=== PATIENT | male | born 1970 | race Caucasian/White ===

== ENCOUNTER 2017-03-17 18:16 | Emergency (ER) | payer SELFPAY ==
[~2017-03-17] VITALS: Ht 172.7 cm; Wt 94.3 kg
[~2017-03-17 18:16] MED LIST: ANAPROX DS550 MG PO; DARVOCET N 1001 TAB PO; FLEXERIL10 MG PO; SKELAXIN800 MG PO; VICODIN 5/500 505 MG PO
[2017-03-17] MEDS ORDERED: PLAVIX75 M1 PO (18:29)
[2017-03-17 18:43] LABS: BILIRUBIN NEGATIVE (NEGATIVE); BLOOD NEGATIVE (NEGATIVE); CLARITY SL CLOUDY (CLEAR); COLOR YELLOW (YELLOW); GLUCOSE NEGATIVE (NEGATIVE); KETONE NEGATIVE (NEGATIVE); LEUKO ESTERASE NEGATIVE (NEGATIVE); NITRITE NEGATIVE (NEGATIVE); PH 6.5 (5.0-9.0); PROTEIN NEGATIVE (NEGATIVE); UROBILINOGEN 0.2 E.U./dl (0.2-1.0)
[2017-03-17 18:54] LABS: BACTERIA TRACE; EPITHELIAL CELLS 0-2; RBC 0-2 rbc/hpf (0-2); URINE REFLEX COMMENT NO (NO); WBC 0-2 wbc/hpf (0-5)
[2017-03-17] MEDS ORDERED: FLOMAX0.4 MG PO (18:56)
== END 2017-03-17 19:01 | disposition home or self-care (01) ==
LOC: ED 18:16
PROVIDERS: Nurse Practitioner Family
DX: R35.0 Frequency of micturition (principal); R03.0 Elevated blood-pressure reading, without diagnosis of hypertension; R39.11 Hesitancy of micturition; R30.0 Dysuria; F17.200 Nicotine dependence, unspecified, uncomplicated; Z79.899 Other long term (current) drug therapy

== ENCOUNTER 2017-03-25 13:42 | Emergency (ER) | payer SELFPAY ==
[~2017-03-25] VITALS: Wt 94.3 kg
[~2017-03-25 13:42] MED LIST changes: +FLOMAX0.4 MG PO; +PLAVIX75 M1 PO
[2017-03-25] MEDS ORDERED: NAPROXEN550 MG PO (13:49)
[2017-03-25] MEDS ORDERED: LEVOTHYROXINE0.05 MG PO (13:49)
[2017-03-25 14:10] LABS: BASO % 0.3 % (0.0-1.0); EOS # 0.2 10*3/uL (0.0-0.4); EOS % 2.6 % (1.0-4.0); HEMOGLOBIN 14.9 g/dl (14.0-18.0); LYMPH # 2.5 10*3/uL (1.3-4.4); LYMPH % 33.9 % (27.0-41.0); MEAN CELL VOLUME 89.1 fl (80.0-94.0); MEAN CORPUSCULAR HGB 29.5 pg (27.0-31.0); MEAN CORPUSCULAR HGB CONC 33.1 g/dl (33.0-37.0); MONO # 0.7 10*3/uL (0.1-1.0); NEUT # 3.9 10*3/uL (2.3-7.9); NEUT % 52.8 % (47.0-73.0); PLATELET COUNT AUTOMATED 227 10*3/uL (130-400); RED BLOOD COUNT 5.05 10*6/uL (4.50-5.90); RED CELL DISTRI WIDTH 13.5 % (0-14.5); WHITE BLOOD COUNT 7.3 10*3/uL (4.8-10.8)
[2017-03-25 14:27] LABS: ALBUMIN 4.1 gm/dl (3.1-4.5); ALKALINE PHOSPHATASE 77 U/L (45-117); BILIRUBIN, TOTAL 0.4 mg/dl (0.2-1.0); BUN 15 mg/dl (7-24); CARBON DIOXIDE 28 mmol/L (21-32); CHLORIDE 105 mmol/L (98-107); EST GLOM FILT AFRICAN AMERICAN > 60 ml/min; GLUCOSE 99 mg/dL (65-99); POTASSIUM 4.1 mmol/L (3.5-5.1); SGOT/AST 15 IU/L (3-35); SGPT/ALT 38 U/L (12-78); SODIUM 137 mmol/L (136-145); TOTAL PROTEIN 7.4 gm/dL (6.4-8.2)
[2017-03-25 15:10] LABS: BILIRUBIN NEGATIVE (NEGATIVE); BLOOD NEGATIVE (NEGATIVE); CLARITY SL CLOUDY (CLEAR); COLOR YELLOW (YELLOW); GLUCOSE NEGATIVE (NEGATIVE); KETONE NEGATIVE (NEGATIVE); LEUKO ESTERASE NEGATIVE (NEGATIVE); NITRITE NEGATIVE (NEGATIVE); PROTEIN NEGATIVE (NEGATIVE); SPECIFIC GRAVITY 1.025 (1.005-1.030); UROBILINOGEN 0.2 E.U./dl (0.2-1.0)
[2017-03-25 15:16] LABS: URINE REFLEX COMMENT NO (NO)
== END 2017-03-25 16:08 | disposition home or self-care (01) ==
LOC: ED 13:42
PROVIDERS: Nurse Practitioner Family
DX: R35.0 Frequency of micturition (principal); R10.30 Lower abdominal pain, unspecified; R03.0 Elevated blood-pressure reading, without diagnosis of hypertension; F17.200 Nicotine dependence, unspecified, uncomplicated; Z79.899 Other long term (current) drug therapy

== ENCOUNTER 2017-05-06 14:00 | Emergency (ER) | payer SELFPAY ==
[~2017-05-06] VITALS: Wt 92.5 kg
[~2017-05-06 14:00] MED LIST changes: +LEVOTHYROXINE0.05 MG PO; +NAPROXEN550 MG PO
[2017-05-06] MEDS ORDERED: ROBAXIN500 M1 PO (15:01)
[2017-05-06] MEDS ORDERED: ANAPROX DS550 MG PO (15:01)
== END 2017-05-06 15:25 | disposition home or self-care (01) ==
LOC: ED 14:00
DX: S39.012A Strain of muscle, fascia and tendon of lower back, initial encounter (principal); F17.200 Nicotine dependence, unspecified, uncomplicated; Z79.899 Other long term (current) drug therapy; X58.XXXA Exposure to other specified factors, initial encounter; Y93.89 Activity, other specified; Y92.89 Other specified places as the place of occurrence of the external cause; Y99.8 Other external cause status

== ENCOUNTER 2017-05-26 11:06 | Emergency (ER) | payer OTHER ==
[~2017-05-26] VITALS: Ht 172.7 cm; Wt 90.7 kg
[~2017-05-26 11:06] MED LIST changes: +ROBAXIN500 M1 PO
[2017-05-26] MEDS ORDERED: DOXYCYCLINE100 M3 PO (12:11)
[2017-05-26] MEDS ORDERED: TOBRADEX 0.1%-0.5 ML OPH (12:11)
== END 2017-05-26 14:09 | disposition home or self-care (01) ==
LOC: ED 11:06
DX: H00.011 Hordeolum externum right upper eyelid (principal); F17.200 Nicotine dependence, unspecified, uncomplicated; Z79.899 Other long term (current) drug therapy

== ENCOUNTER 2017-06-01 22:42 | Inpatient (IN) | payer OTHER ==
[~2017-06-01] VITALS: Ht 175.2 cm; Wt 90.4 kg
[~2017-06-01 22:42] MED LIST changes: +DOXYCYCLINE100 M3 PO; +TOBRADEX 0.1%-0.5 ML OPH
[2017-06-01 22:59] VITALS: BP 167/108
[2017-06-01 23:06] LABS: BASO % 0.4 % (0.0-1.0); EOS # 0.2 10*3/uL (0.0-0.4); EOS % 1.9 % (1.0-4.0); HEMATOCRIT 44.3 % (42.0-52.0); HEMOGLOBIN 14.9 g/dl (14.0-18.0); LYMPH # 2.9 10*3/uL (1.3-4.4); LYMPH % 34.5 % (27.0-41.0); MEAN CELL VOLUME 88.6 fl (80.0-94.0); MEAN CORPUSCULAR HGB 29.8 pg (27.0-31.0); MEAN CORPUSCULAR HGB CONC 33.6 g/dl (33.0-37.0); MEAN PLATELET VOLUME 10.3 fl (9.6-12.3); MONO # 0.5 10*3/uL (0.1-1.0); MONO % 5.4 % (3.0-9.0); NEUT # 4.8 10*3/uL (2.3-7.9); NEUT % 57.4 % (47.0-73.0); PLATELET COUNT AUTOMATED 215 10*3/uL (130-400); RED CELL DISTRI WIDTH 13.9 % (0-14.5); WHITE BLOOD COUNT 8.4 10*3/uL (4.8-10.8)
[2017-06-01 23:16] LABS: INTERNATIONAL NORM RATIO 0.9 (2.0-3.5)
[2017-06-01 23:20] VITALS: BP 148/96
[2017-06-01 23:22] LABS: ALBUMIN 3.7 gm/dl (3.1-4.5); ALKALINE PHOSPHATASE 79 U/L (45-117); BILIRUBIN, TOTAL 0.4 mg/dl (0.2-1.0); BUN 12 mg/dl (7-24); CARBON DIOXIDE 26 mmol/L (21-32); CHLORIDE 104 mmol/L (98-107); EST GLOM FILT AFRICAN AMERICAN > 60 ml/min; GLUCOSE 134 mg/dL (65-99); MAGNESIUM 1.8 mg/dL (1.5-2.1); POTASSIUM 3.6 mmol/L (3.5-5.1); SGOT/AST 15 IU/L (3-35); SGPT/ALT 30 U/L (12-78); SODIUM 140 mmol/L (136-145); TOTAL PROTEIN 7.2 gm/dL (6.4-8.2)
[2017-06-01 23:23] LABS: TROPONIN I < 0.015 ng/ml (<0.045)
[2017-06-02 00:48] VITALS: BP 136/89
[2017-06-02 01:00] VITALS: BP 127/77
[2017-06-02] MEDS ORDERED: ASPIRIN ADULT L81 M1 PO (01:54)
[2017-06-02] MEDS ORDERED: FLOMAX0.4 MG PO (01:54)
[2017-06-02] MEDS ORDERED: LOSARTAN POTASS25 M1 PO (01:55)
[2017-06-02] MEDS ORDERED: LIPITOR40 MG PO (01:55)
[2017-06-02 05:32] LABS: BUN 18 mg/dl (7-24); CARBON DIOXIDE 28 mmol/L (21-32); CHLORIDE 105 mmol/L (98-107); EST GLOM FILT AFRICAN AMERICAN > 60 ml/min; GLUCOSE 106 mg/dL (65-99); POTASSIUM 4.1 mmol/L (3.5-5.1); SODIUM 139 mmol/L (136-145)
[2017-06-02 05:37] LABS: CHOLESTEROL 206 mg/dL (<200); FREE T4 0.67 ng/dl (0.76-1.46); HDL CHOLESTEROL 24 mg/dl (40-60); PHOSPHOROUS 3.8 mg/dL (2.5-4.9); TRIGLYCERIDES 872 mg/dl (<150)
[2017-06-02 05:43] LABS: HEMOGLOBIN A1c 6.1 % (4.8-5.6)
[2017-06-02 06:06] LABS: BASO % 0.3 % (0.0-1.0); EOS # 0.1 10*3/uL (0.0-0.4); EOS % 1.9 % (1.0-4.0); HEMOGLOBIN 14.2 g/dl (14.0-18.0); IG # 0.1 10*3/uL (0.0-0.1); LYMPH # 2.7 10*3/uL (1.3-4.4); LYMPH % 36.7 % (27.0-41.0); MEAN CELL VOLUME 90.3 fl (80.0-94.0); MEAN CORPUSCULAR HGB 29.8 pg (27.0-31.0); MEAN PLATELET VOLUME 10.9 fl (9.6-12.3); MONO # 0.5 10*3/uL (0.1-1.0); MONO % 6.9 % (3.0-9.0); NEUT % 53.5 % (47.0-73.0); PLATELET COUNT AUTOMATED 202 10*3/uL (130-400); RED BLOOD COUNT 4.76 10*6/uL (4.50-5.90); WHITE BLOOD COUNT 7.4 10*3/uL (4.8-10.8)
[2017-06-02 06:53] LABS: VITAMIN D, 25-HYDROXY 17.9 ng/mL (30-100)
[2017-06-02 08:00] VITALS: BP 104/60
[2017-06-02 12:00] VITALS: BP 131/82
[2017-06-02 16:00] VITALS: BP 127/80
[2017-06-02] MEDS ORDERED: VITAMIN D50000 I3 PO (16:25)
[2017-06-02] MEDS ORDERED: ATORVASTATIN CA80 M1 PO (16:25)
[2017-06-02] MEDS ORDERED: SYNTHROID,LEVO75 MCG PO (16:25)
[2017-06-02] MEDS ORDERED: NICODERM C14 MG/24 H TD (16:50)
== END 2017-06-02 20:31 | disposition home or self-care (01) | DRG 683 ==
LOC: ED 22:42 → 4E 06-02 00:21 → EDHOLD 06-02 00:21 → 4E 06-02 00:23
PROVIDERS: Emergency Medicine; Internal Medicine
DX: N17.0 Acute kidney failure with tubular necrosis (principal); I13.0 Hypertensive heart and chronic kidney disease with heart failure and stage 1 through stage 4 chronic kidney disease, or unspecified chronic kidney disease; I50.32 Chronic diastolic (congestive) heart failure; E11.22 Type 2 diabetes mellitus with diabetic chronic kidney disease; E44.1 Mild protein-calorie malnutrition; R07.9 Chest pain, unspecified; I25.10 Atherosclerotic heart disease of native coronary artery without angina pectoris; E78.5 Hyperlipidemia, unspecified; Z95.5 Presence of coronary angioplasty implant and graft; Z88.1 Allergy status to other antibiotic agents; F41.9 Anxiety disorder, unspecified; F32.9 Major depressive disorder, single episode, unspecified; N40.0 Benign prostatic hyperplasia without lower urinary tract symptoms; N18.3 Chronic kidney disease, stage 3 (moderate); J44.9 Chronic obstructive pulmonary disease, unspecified; K21.9 Gastro-esophageal reflux disease without esophagitis; Z86.73 Personal history of transient ischemic attack (TIA), and cerebral infarction without residual deficits; G40.909 Epilepsy, unspecified, not intractable, without status epilepticus; Z79.4 Long term (current) use of insulin; Z96.641 Presence of right artificial hip joint; Z80.0 Family history of malignant neoplasm of digestive organs; E83.42 Hypomagnesemia; M51.36 Other intervertebral disc degeneration, lumbar region; F17.210 Nicotine dependence, cigarettes, uncomplicated; Z89.412 Acquired absence of left great toe; Z89.422 Acquired absence of other left toe(s); K59.00 Constipation, unspecified; Z68.32 Body mass index [BMI] 32.0-32.9, adult; G89.29 Other chronic pain; D53.9 Nutritional anemia, unspecified; E87.5 Hyperkalemia; E11.65 Type 2 diabetes mellitus with hyperglycemia; E66.09 Other obesity due to excess calories; R19.7 Diarrhea, unspecified; M1A.10X0 Lead-induced chronic gout, unspecified site, without tophus (tophi); T56.0X1D Toxic effect of lead and its compounds, accidental (unintentional), subsequent encounter

== ENCOUNTER → 2017-07-03 | Outpatient (CLI) | payer SELFPAY ==
[~2017-07-03] MED LIST changes: +ASPIRIN ADULT L81 M1 PO; +ATORVASTATIN CA80 M1 PO; +LIPITOR40 MG PO; +LOSARTAN POTASS25 M1 PO; +NICODERM C14 MG/24 H TD; +SYNTHROID,LEVO75 MCG PO; +VITAMIN D50000 I3 PO
== END | disposition home or self-care (01) ==
LOC: RAD 15:40
DX: M25.461 Effusion, right knee (principal)

== ENCOUNTER → 2017-09-20 | Outpatient (CLI) | payer OTHER | END | disposition home or self-care (01) | LOC: MRI 08:00 | DX: S83.241A Other tear of medial meniscus, current injury, right knee, initial encounter (principal); X58.XXXA Exposure to other specified factors, initial encounter; Y93.89 Activity, other specified; Y92.89 Other specified places as the place of occurrence of the external cause; Y99.8 Other external cause status ==

== ENCOUNTER → 2025-02-10 | Outpatient (CLI) | payer OTHER ==
[2025-02-10 16:09] LABS: BASO % 0.4 % (0.0-1.0); EOS # 0.1 10*3/uL (0.0-0.4); EOS % 1.8 % (1.0-4.0); HEMATOCRIT 36.3 % (42.0-52.0); MEAN CELL VOLUME 75.8 fl (80.0-94.0); MEAN CORPUSCULAR HGB 22.1 pg (27.0-31.0); MEAN CORPUSCULAR HGB CONC 29.2 g/dl (33.0-37.0); MEAN PLATELET VOLUME 9.9 fl (9.6-12.3); MONO # 0.5 10*3/uL (0.1-1.0); MONO % 6.6 % (3.0-9.0); NEUT # 4.5 10*3/uL (2.3-7.9); NEUT % 58.8 % (47.0-73.0); PLATELET COUNT AUTOMATED 285 10*3/uL (130-400); RED BLOOD COUNT 4.79 10*6/uL (4.50-5.90); RED CELL DISTRI WIDTH 16.9 % (0-14.5); WHITE BLOOD COUNT 7.6 10*3/uL (4.8-10.8)
[2025-02-10 16:36] LABS: ALKALINE PHOSPHATASE 96 U/L (46-116); BUN 13 mg/dl (9-23); CHLORIDE 105 mmol/L (98-107); CHOLESTEROL 211 mg/dL (<200); POTASSIUM 3.7 mmol/L (3.4-5.1); SGPT/ALT 14 U/L (5-49); TOTAL PROTEIN 7.3 gm/dL (6.0-8.0); TRIGLYCERIDES 520 mg/dl (<150)
[2025-02-10 17:23] LABS: FREE T4 0.97 ng/dl (0.89-1.76)
== END | disposition home or self-care (01) ==
LOC: LAB 15:50
PROVIDERS: ATTEND Nurse Practitioner Family
DX: I10 Essential (primary) hypertension (principal); J01.00 Acute maxillary sinusitis, unspecified; E03.9 Hypothyroidism, unspecified; E78.2 Mixed hyperlipidemia; J34.89 Other specified disorders of nose and nasal sinuses; Z91.199 Patient's noncompliance with other medical treatment and regimen due to unspecified reason

== ENCOUNTER 2025-02-27 04:17 | Emergency (ER) | payer OTHER ==
[~2025-02-27] VITALS: Ht 172.7 cm; Wt 87.5 kg
[2025-02-27] MEDS ORDERED: METHOCARBAMOL 750 MG TAB PO ONE (04:30)
[2025-02-27] MEDS ORDERED: Ketorolac Tromethamine 60 MG/2 ML VIAL IM ONE (04:30)
[2025-02-27] MEDS ORDERED: METHOCARBAMOL750 M1 PO (04:35)
[2025-02-27] MEDS ORDERED: NAPROSYN500 MG PO (04:35)
== END 2025-02-27 04:42 | disposition home or self-care (01) ==
LOC: ED 04:17
DX: S39.012A Strain of muscle, fascia and tendon of lower back, initial encounter (principal); F17.200 Nicotine dependence, unspecified, uncomplicated; Z79.899 Other long term (current) drug therapy; Z79.82 Long term (current) use of aspirin; Z98.890 Other specified postprocedural states; Z95.5 Presence of coronary angioplasty implant and graft; X50.0XXA Overexertion from strenuous movement or load, initial encounter; Y93.89 Activity, other specified; Y92.69 Other specified industrial and construction area as the place of occurrence of the external cause; Y99.8 Other external cause status

== ENCOUNTER 2025-04-10 08:58 | Emergency (ER) | payer OTHER ==
[~2025-04-10] VITALS: Ht 175.2 cm; Wt 86.2 kg
[~2025-04-10 08:58] MED LIST changes: +METHOCARBAMOL750 M1 PO; +NAPROSYN500 MG PO
[2025-04-10] MEDS ORDERED: ROSUVASTATIN CA40 MG PO (09:25)
[2025-04-10] MEDS ORDERED: TOPROL XL25 MG PO (09:25)
[2025-04-10] MEDS ORDERED: LOSARTAN POTAS100 M1 PO (09:26)
[2025-04-10] MEDS ORDERED: diphenhydrAMINE hydrochloride 50 MG/ML VIAL IV ONE (09:40)
[2025-04-10] MEDS ORDERED: Metoclopramide Hydrochloride 10 MG/2 ML VIAL IV ONE (09:40)
[2025-04-10] MEDS ORDERED: Ketorolac Tromethamine 15 MG/ML VIAL IV ONE (09:40)
[2025-04-10] MEDS ORDERED: ACETAMINOPHEN 325 MG TAB PO ONE (09:40)
[2025-04-10] MEDS ORDERED: Dexamethasone Sodium Phospha 20 MG/5 ML VIAL IV ONE (09:40)
[2025-04-10] MEDS ORDERED: SODIUM CHLORIDE 0.9% 1,000 ML IV ONE (09:40)
[2025-04-10] MEDS ORDERED: REGLAN10 M1 PO (11:47)
== END 2025-04-10 12:03 | disposition home or self-care (01) ==
LOC: ED 08:58
DX: G43.909 Migraine, unspecified, not intractable, without status migrainosus (principal); Z79.899 Other long term (current) drug therapy; Z95.5 Presence of coronary angioplasty implant and graft; Z98.890 Other specified postprocedural states; Z87.891 Personal history of nicotine dependence

== ENCOUNTER → 2025-04-15 | Outpatient (CLI) | payer OTHER ==
[~2025-04-15] MED LIST changes: +LOSARTAN POTAS100 M1 PO; +REGLAN10 M1 PO; +ROSUVASTATIN CA40 MG PO; +TOPROL XL25 MG PO
[2025-04-15 09:41] LABS: BASO % 0.4 % (0.0-1.0); EOS # 0.2 10*3/uL (0.0-0.4); EOS % 2.8 % (1.0-4.0); MEAN CELL VOLUME 74.1 fl (80.0-94.0); MEAN CORPUSCULAR HGB 21.6 pg (27.0-31.0); MEAN CORPUSCULAR HGB CONC 29.2 g/dl (33.0-37.0); MEAN PLATELET VOLUME 10.2 fl (9.6-12.3); MONO # 0.5 10*3/uL (0.1-1.0); MONO % 6.7 % (3.0-9.0); NEUT # 5.3 10*3/uL (2.3-7.9); NEUT % 66.1 % (47.0-73.0); PLATELET COUNT AUTOMATED 266 10*3/uL (130-400); RED BLOOD COUNT 4.86 10*6/uL (4.50-5.90); RED CELL DISTRI WIDTH 16.2 % (0-14.5)
[2025-04-15 10:16] LABS: ALKALINE PHOSPHATASE 86 U/L (46-116); BUN 15 mg/dl (9-23); CHLORIDE 107 mmol/L (98-107); CHOLESTEROL 137 mg/dL (<200); LDL CHOLESTEROL 62 mg/dL (9-159); POTASSIUM 4.1 mmol/L (3.4-5.1); SGPT/ALT 15 U/L (5-49); TOTAL PROTEIN 7.1 gm/dL (6.0-8.0); TRIGLYCERIDES 226 mg/dl (<150)
== END | disposition home or self-care (01) ==
LOC: LAB 09:14
PROVIDERS: ATTEND Nurse Practitioner Family
DX: I10 Essential (primary) hypertension (principal); J01.00 Acute maxillary sinusitis, unspecified; J34.89 Other specified disorders of nose and nasal sinuses; E03.9 Hypothyroidism, unspecified; E78.2 Mixed hyperlipidemia; Z91.199 Patient's noncompliance with other medical treatment and regimen due to unspecified reason

== ENCOUNTER → 2025-07-29 | Outpatient (CLI) | payer OTHER ==
[2025-07-29 16:41] LABS: BASO # 0.0 10*3/uL (0.0-0.1); BASO % 0.3 % (0.0-1.0); EOS # 0.1 10*3/uL (0.0-0.4); EOS % 1.8 % (1.0-4.0); MEAN CELL VOLUME 70.7 fl (80.0-94.0); MEAN CORPUSCULAR HGB 20.5 pg (27.0-31.0); MEAN PLATELET VOLUME 10.1 fl (9.6-12.3); MONO # 0.5 10*3/uL (0.1-1.0); MONO % 7.2 % (3.0-9.0); NEUT # 4.3 10*3/uL (2.3-7.9); NEUT % 60.0 % (47.0-73.0); NUCLEATED RED BLOOD CELL 0.0 % (0.0-0.0); NUCLEATED RED BLOOD CELL 0.0 10*3/uL (0.0-0.0); PLATELET COUNT AUTOMATED 308 10*3/uL (130-400); RED CELL DISTRI WIDTH 17.5 % (0-14.5)
[2025-07-29 17:09] LABS: BUN 19 mg/dl (9-23); SGPT/ALT 15 U/L (5-49)
== END ==
LOC: LAB 16:16
PROVIDERS: ATTEND Nurse Practitioner Family
DX: I10 Essential (primary) hypertension (principal); E78.2 Mixed hyperlipidemia; E03.9 Hypothyroidism, unspecified; D64.9 Anemia, unspecified; G89.29 Other chronic pain; F98.8 Other specified behavioral and emotional disorders with onset usually occurring in childhood and adolescence; Z00.00 Encounter for general adult medical examination without abnormal findings

== ENCOUNTER → 2025-10-09 | Outpatient (CLI) | payer OTHER ==
[2025-10-09 16:42] LABS: BASO # 0.0 10*3/uL (0.0-0.1); BASO % 0.4 % (0.0-1.0); EOS # 0.1 10*3/uL (0.0-0.4); EOS % 1.3 % (1.0-4.0); MEAN CELL VOLUME 69.7 fl (80.0-94.0); MEAN CORPUSCULAR HGB 19.9 pg (27.0-31.0); MEAN PLATELET VOLUME 10.3 fl (9.6-12.3); MONO # 0.6 10*3/uL (0.1-1.0); MONO % 6.9 % (3.0-9.0); NEUT # 5.5 10*3/uL (2.3-7.9); NEUT % 65.6 % (47.0-73.0); NUCLEATED RED BLOOD CELL 0.0 % (0.0-0.0); NUCLEATED RED BLOOD CELL 0.0 10*3/uL (0.0-0.0); PLATELET COUNT AUTOMATED 365 10*3/uL (130-400); RED CELL DISTRI WIDTH 18.7 % (0-14.5)
[2025-10-09 17:07] LABS: BUN 20 mg/dl (9-23); SGPT/ALT 9 U/L (5-49)
== END | disposition home or self-care (01) ==
LOC: ZRHCWE 15:06
PROVIDERS: ATTEND Nurse Practitioner Family
DX: I86.1 Scrotal varices (principal); N43.3 Hydrocele, unspecified; N50.811 Right testicular pain; N50.812 Left testicular pain; I10 Essential (primary) hypertension; D64.9 Anemia, unspecified; E03.9 Hypothyroidism, unspecified; E78.2 Mixed hyperlipidemia; G89.29 Other chronic pain; E11.9 Type 2 diabetes mellitus without complications; Z87.438 Personal history of other diseases of male genital organs; Z00.00 Encounter for general adult medical examination without abnormal findings